=== PATIENT | male | born 1985 | race African-American/Black ===

== ENCOUNTER 2017-09-04 10:09 | Emergency (ER) | payer MEDICAID ==
[~2017-09-04] VITALS: Ht 182.9 cm; Wt 100.7 kg
[2017-09-04 10:26] VITALS: BP 133/79
[2017-09-04] MEDS ORDERED: diphenhydrAMINE HCL 25 MG CAPSULE ONE (10:38)
[2017-09-04] MEDS ORDERED: diphenhydrAMINE HCL 25 MG CAPSULE PO ONE (11:00)
== END 2017-09-04 11:07 | disposition home or self-care (01) ==
LOC: ER 10:10
DX: R21 Rash and other nonspecific skin eruption (principal)
CPT/HCPCS: 99282; A4606; Q0163; Z7610